=== PATIENT | female | born 1985 | race Caucasian/White ===

== ENCOUNTER → 2020-06-10 14:51 | Outpatient (BNVA) | payer OTHER, SELFPAY | PROVIDERS: Visit Provider Nurse Practitioner Family | DX: Z20.828 Contact with and (suspected) exposure to other viral communicable diseases (principal) | CPT/HCPCS: 87635 ==

== ENCOUNTER 2020-09-29 08:07 | Emergency (ER) | payer OTHER, SELFPAY ==
--- NOTE | 2020-09-29 08:29 | W.ED.URI ---
HPI - URI/Sore Throat General: Chief Complaint: Fever Stated Complaint: Fever/Weakness/Dizzy/SOB Time Seen by Provider: 09/29/20 08:28 History of Present Illness: MD elicited complaint: fever and cough Onset (ago): day(s) (since tuesday, 3 days) Severity: moderate Description of mucous: clear Able to tolerate fluids by mouth: Yes Relieving factors: nothing Associated symptoms: Reports congestion, cough and fever(s) Review of Systems General: Reports: 10 or more systems reviewed and unremarkable except in HPI and below Const: Reports: fever(s) Resp: Reports: non-productive cough PFSH ED PFSH: Medical History (Updated 09/29/20 @ 09:44 by JERSON Núñez) No pertinent past medical history Surgical History (Updated 12/19/19 @ 20:29 by JERSON Silver) No pertinent past surgical history Family History (Updated 12/19/19 @ 15:21 by Belle Ramos LPN, RT) Denies family history of Clotting disorder Bleeding disorder Cancer Social History Smoking and tobacco status: current every day smoker cigarettes Packs smoked per day: 1 Years cigarettes smoked: 15 Second hand smoke exposure: No Alcohol intake: current Alcohol intake frequency: few times a week Alcohol type: beer Lives independently: Yes Household members: spouse Marital status: Current occupational status: employed Current occupation: [employer] History of recent travel: No Current gender identity: Female Physical Exam Const: COMMON NORMALS: no acute distress and patient oriented x3 GENERAL APPEARANCE: cooperative HENMT: COMMON NORMALS: normocephalic and Normal external nose present HEAD & SCALP: normal to inspection and normocephalic NOSE: Normal external nose present MOUTH: Normal oral and palatal mucosa present Eye: GENERAL EYE: appearance normal, both eyes and all related structures Neck/C-Spine: COMMON NORMALS: full ROM Lymph: LYMPHATIC: no lymphadenopathy noted Chest: COMMONS NORMALS: normal inspection of the chest Resp: COMMON NORMALS: normal respiratory effort EFFORT & INSPECTION: Yes able to speak in complete sentences AUSCULTATION: wheezes Cardio: COMMON NORMALS: regular rate and regular rhythm RATE: regular rate RHYTHM: regular rhythm GI: COMMON NORMALS: non-tender Back/Pelvis: COMMON NORMALS: thoracic and lumbar spine normal to inspection Extremity: COMMON NORMALS: normal to inspection Neuro: COMMON NORMALS: patient oriented x3 and moves all extremities Psych: COMMON NORMALS: mental status grossly normal and cooperative Skin: COMMON NORMALS: no rashes or lesions noted GENERAL SKIN EXAM: no rashes or lesions noted Course Vital Signs: Vital signs: Vital Signs Temperature 97.9 F 09/29/20 08:30 Pulse Rate 68 09/29/20 09:34 Respiratory Rate 18 09/29/20 09:28 Blood Pressure 94/67 09/29/20 08:30 Pulse Oximetry 95 09/29/20 09:28 MDM - URI/Sore Throat MDM Narrative: Medical decision making narrative: Patient comes in today with complaints of wheezing and cough with fever and the evening since Tuesday. Patient denies any history of similar episodes. On exam patient has wheezing throughout lung correa. Skin is warm and dry. Vital signs are normal. Differential diagnosis includes but not limited to pneumonia, bronchitis, COVID-19. Chest x-ray was normal. Laboratory values noted some mild elevation in hemoglobin and hematocrit, sodium 135, anion gap of 21. Feel the patient probably has bronchitis maybe with a mild touch of asthma. Patient was treated with albuterol inhaler 4 puffs with improvement of lung correa and wheezing. Patient then was medicated with dexamethasone 10 mg IV and given 1 L of IV fluids. Patient had significant improvement in symptoms prior to discharge. We will continue patient with doxycycline 100 mg twice a day for 7 days and dexamethasone 4 mg daily for 5 days. Patient was encouraged to drink plenty of water continue with albuterol inhaler for wheezing and cough and then daily for times. Patient reported understanding of care plan and need for follow-up or return to the ER. Lab Data: Labs: Lab Results 09/29/20 09/29/20 09/29/20 Range/Units 08:50 08:50 08:56 WBC 9.8 (4.0-10.0) 10^3/ uL RBC 5.02 (4.1-5.3) 10^6/u L Hgb 16.4 H (11.5-15.3) g/dL Hct 47.5 H (37.0-47.0) % MCV 94.6 (81-99) fL MCH 32.7 (28.0-34.0) pg MCHC 34.5 (30.0-36.0) g/dL RDW 13.5 (12.1-15.1) % Plt Count 358 (130-400) 10^3/c mm MPV 8.9 (7.4-10.4) fL Neut % (Auto) 63.8 % Lymph % (Auto) 19.4 % [place] % (Auto) 12.4 % Eos % (Auto) 3.3 % Baso % (Auto) 0.7 % Neut # (Auto) 6.26 (1.8-7.7) 10^3/u L Lymph # (Auto) 1.9 (0.8-4.8) 10^3/u L [place] # (Auto) 1.2 H (0.2-0.9) 10^3/u L Eos # (Auto) 0.3 (0.0-0.8) 10^3/u L Baso # (Auto) 0.1 (0.0-0.1) 10^3/u L Nucleated RBC % (a uto) 0 % Nucleated RBCs # 0.0 /100WBC Sodium 135 L (136-145) mmol/L Potassium 4.1 (3.5-5.1) mmol/L Chloride 97 L (98-107) mmol/L Carbon Dioxide 21 L (22-29) mmol/L Anion Gap 21.1 H (5-19) BUN 10 (6-20) mg/dL Creatinine 0.5 (0.5-0.9) mg/dL GFR Calculation 141.2 H (90-130) mL/min Glucose 78 (65-115) mg/dL Calculated Osmolal ity 278 L (285-295) mOsm/k g Calcium 9.3 (8.5-10.5) mg/dL Total Bilirubin 0.6 (0.15-1.2) mg/dL AST 21 (0-32) U/L ALT 16 (0-33) U/L Alkaline Phosphata se 77 (35-105) IU/L Total Protein 7.3 (6.6-8.7) g/dL Albumin 4.4 (3.5-5.2) g/dL Globulin 2.9 (1.3-4.6) g/dL SARS-CoV-2 Ag (Rap id) Negative (Negative) Discharge Plan Discharge Patient Disposition: Home Clinical Impression: Acute asthmatic bronchitis Condition: Stable Prescriptions: New doxycycline monohydrate 100 mg capsule 100 mg PO BID 7 Days Qty: 14 RF: 0 dexamethasone 4 mg tablet 4 mg PO DAILY Qty: 5 RF: 0 Discharge Orders: Discharge ED (Routine); Ordered 09/29/20 Ordered By: John Payan Discharge Diet: Usual diet Discharge Activity: Increase activity as tolerated Patient Instructions: Acute Bronchitis (ED), Opioid Safety Activity Restrictions/Additional Instructions: Continue with albuterol inhaler 2 puffs every 4 hours as needed for cough or wheezing. You may want to use the inhaler at least 4 times a day for the next 5 days. Try to stop smoking. Take antibiotic as directed twice a day for the next 7 days. Doxycycline, the antibiotic, they make you more sensitive to the sun so be careful in direct sunlight. Take dexamethasone 4 mg daily for the next 5 days to help with inflammation of the bronchioles. Drink plenty of water. Activity as tolerated. Follow-up with primary care as needed. Return to the ER for new concerns. 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
[2020-09-29 08:30] VITALS: BP 94/67; PULSE 76; RESP 18; TEMP 36.6; O2SAT 95; BMI 29.7
--- NOTE | 2020-09-29 08:33 | XRR_ITS ---
PROCEDURE INFORMATION: Exam: XR Chest Exam date and time: 09/29/2020 8:37 AM Age: 35 years old Clinical indication: Cough and shortness of breath and wheezing; Additional info: Cough wheezing TECHNIQUE: Imaging protocol: XR of the chest. Views: 1 view. COMPARISON: No relevant prior studies available. FINDINGS: Lungs: Unremarkable. No consolidation. Pleural spaces: Unremarkable. No pleural effusion. No pneumothorax. Heart/Mediastinum: Unremarkable. No cardiomegaly. Bones/joints: Unremarkable. XR/XR chest 1V portable [id number] IMPRESSION: No acute findings.
[2020-09-29 08:47] VITALS: O2SAT 95
[2020-09-29] MEDS: sodium chloride 0.9% 1,000 ML 999 ML IV (08:57)
[2020-09-29] MEDS: dexamethasone 4 mg/mL INJ 10 MG IVP (08:57)
[2020-09-29 09:11] LABS: Basophils # 0.1 10^3/uL (0.0-0.1); Basophils % 0.7 %; Eosinophils # 0.3 10^3/uL (0.0-0.8); Eosinophils % 3.3 %; Hematocrit 47.5 % (37.0-47.0); Hemoglobin 16.4 g/dL (11.5-15.3); Lymphocytes # 1.9 10^3/uL (0.8-4.8); Lymphocytes % 19.4 %; Mean Corpuscular HGB Conc 34.5 g/dL (30.0-36.0); Mean Corpuscular Hemoglobin 32.7 pg (28.0-34.0); Mean Corpuscular Volume 94.6 fL (81-99); Mean Platelet Volume 8.9 fL (7.4-10.4); Monocytes # 1.2 10^3/uL (0.2-0.9); Monocytes % 12.4 %; Neutrophils # 6.26 10^3/uL (1.8-7.7); Neutrophils % 63.8 %; Nucleated Red Blood Cells % 0 %; Platelet Count 358 10^3/cmm (130-400); Red Blood Count 5.02 10^6/uL (4.1-5.3); Red Cell Distribution Width 13.5 % (12.1-15.1); White Blood Count 9.8 10^3/uL (4.0-10.0)
[2020-09-29] MEDS: albuterol 8 gm MDI 4 PUFF INHALATION (09:27)
[2020-09-29 09:28] VITALS: PULSE 61; RESP 18; O2SAT 95
[2020-09-29 09:32] LABS: Alanine Aminotransferase 16 U/L (0-33); Albumin Level 4.4 g/dL (3.5-5.2); Alkaline Phosphatase 77 IU/L (35-105); Anion Gap 21.1 (5-19); Aspartate Amino Transferase 21 U/L (0-32); Blood Urea Nitrogen 10 mg/dL (6-20); Calcium 9.3 mg/dL (8.5-10.5); Carbon Dioxide 21 mmol/L (22-29); Chloride 97 mmol/L (98-107); Globulin 2.9 g/dL (1.3-4.6); Glomerular Filtration Rate 141.2 mL/min (90-130); Glucose 78 mg/dL (65-115); Osmolality Calculated 278 mOsm/kg (285-295); Potassium 4.1 mmol/L (3.5-5.1); Sodium 135 mmol/L (136-145); Total Bilirubin 0.6 mg/dL (0.15-1.2); Total Protein 7.3 g/dL (6.6-8.7)
[2020-09-29 09:34] VITALS: PULSE 68
[2020-09-29 09:40] LABS: SARS Covid-2 Antigen Negative (Negative)
[2020-09-29 10:23] VITALS: BP 121/64; PULSE 64; RESP 21; O2SAT 95
[2020-09-29] MEDS: ketorolac 30 mg/mL INJ 15 MG IVP (10:23)
[2020-09-29] MEDS: doxycycline 100 mg Tablet PO (10:23)
[2020-09-29 11:03] VITALS: PULSE 73; RESP 19; O2SAT 95
== END 2020-09-29 11:04 | disposition home or self-care (01) ==
PROVIDERS: Emergency Provider Nurse Practitioner Family
DX: J45.909 Unspecified asthma, uncomplicated (principal); F17.210 Nicotine dependence, cigarettes, uncomplicated
CPT/HCPCS: 71045; 80053; 85025; 87426; 94640; 96361; 96374; 96375; 99283; J1100; J1885; J3535; J7030

== ENCOUNTER 2021-09-08 09:39 | Outpatient (CLI) | payer OTHER, SELFPAY ==
--- NOTE | 2021-09-08 10:02 | XR_ITS ---
WS: [id number] Exam: XR lumbar spine 2-3V* [id number] Date/Time of Exam: 09/08/2021 10:02 AM Reason For Exam: M54.41 - Lumbago with sciatica, right side Findings: In the AP projection, the lumbar spine is straight. The sacroiliac joints are open. The facet struc tures are bilaterally symmetrical. In the lateral projection, the lumbar curve is well maintained. The intervertebral disc spaces are intact. No fractures or anomalies of the lumbar spine are noted. XR/XR lumbar spine 2-3V* [id number] IMPRESSION: Negative lumbar spine.
--- NOTE | 2021-09-08 10:02 | XR_ITS ---
WS: [id number] Exam: XR sacroiliac jts m 3V [id number] Date/Time of Exam: 09/08/2021 10:02 AM Reason For Exam: M54.41 - Lumbago with sciatica, right side No fracture or dislocation. The SI joints are open bilaterally. No sign of bone destruction. A T-type IUD seen in the central pelvis. XR/XR sacroiliac jts m 3V [id number] IMPRESSION: 1. Normal right and left SI joints.
--- NOTE | 2021-09-08 10:02 | XR_ITS ---
WS: [id number] Exam: XR thoracic spine 3V* [id number] Date/Time of Exam: 09/08/2021 10:02 AM Reason For Exam: M54.41 - Lumbago with sciatica, right side Findings: In the AP projection, the thoracic spine is straight. In the lateral projection, the thoracic curve is well maintained. The intervertebral disc spaces are intact. No fractures or anomalies of the tho racic spine are noted. XR/XR thoracic spine 3V* [id number] IMPRESSION: Negative thoracic spine.
== END 2021-09-08 09:40 | disposition home or self-care (01) ==
PROVIDERS: Visit Provider Nurse Practitioner Family
DX: M54.41 Lumbago with sciatica, right side (principal); M54.6 Pain in thoracic spine
CPT/HCPCS: 72072; 72100; 72202

== ENCOUNTER 2021-09-14 13:51 | Emergency (ER) | payer OTHER, SELFPAY ==
[2021-09-14 14:06] VITALS: BP 126/82; PULSE 81; RESP 16; TEMP 36.6; O2SAT 99; BMI 27.3
--- NOTE | 2021-09-14 15:25 | USCV_ITS ---
Kell Samuel Age: 36 Gender: F : 1985 Exam Date: 09/14/2021 15:52 Ordering Phys: Prieto Lundberg Technologist: Marcelo Fraga Exam Location: [email or web address]_ Indication: RIGHT CALF PAIN PROCEDURES: Venous duplex imaging was performed in only the right lower extremity. The following venous structures were evaluated: common femoral vein, profunda vein, proximal portion of the greater saphenous vein, superficial femoral vein, and the popliteal vein. In addition, the posterior tibial and peroneal trunk were evaluated. Serial compression, augmentation maneuvers, and spectral Doppler flow evaluation were performed. FINDINGS: There appears to be thrombus in the right lower extremity within a varicosity at the mid calf region. No DVT noted at this time. All other veins examined appear free of thrombus at this time. CONCLUSIONS Thrombus in the RLE mid calf varicosity. No evidence of DVT Prieto WHITEHEAD notified of pre medeiros at time of exam Bridger Aguila MD (Electronically Signed) Final Date: 14 September 2021 16:20 S
--- NOTE | 2021-09-14 17:48 | ED_ITS ---
HPI - Extremity Problem General: Chief complaint: Extremity Injury, Lower Stated complaint: blood clot in rght leg Time Seen by Provider: 09/14/21 17:40 Source: patient Mode of arrival: ambulatory Limitations: no limitations History of Present Illness: Patient is a nice 36-year-old female who presents to ED today with a complaint of pain and swelling to the anterior aspect of her right lower extremity. Patient states she has noticed pain over the past few days. She states she recently had a back injury and was less mobile than normal and is concerned she could have developed a DVT. She has no previous history of blood clots. She has no significant risk factors. Patient is not complaining of shortness of breath, chest pain, difficulty breathing. MD Complaint: extremity pain and extremity swelling Onset (ago): day(s) Pain Consistency: constant Location: left and lower extremity Radiation: none Relieving factors: nothing Exacerbating factors: nothing Associated symptoms: Deny chest pain or fever(s) Review of Systems Const: Denies: fever(s), chills, body aches, fatigue or malaise Card: Denies: chest pain Resp: Denies: dyspnea Musc: Reports: extremity pain and extremity swelling; Denies: neck pain, back pain, joint pain, joint swelling, joint redness, joint warmth or limited range of motion Neuro: Denies: numbness in extremities, weakness in extremities or sensory changes [facility] ED PFSH: Medical History No pertinent past medical history Surgical History No pertinent past surgical history Family History Denies family history of Clotting disorder Bleeding disorder Cancer Social History Smoking and tobacco status: current every day smoker cigarettes Packs smoked per day: 1 Years cigarettes smoked: 15 Second hand smoke exposure: No Alcohol intake: current Alcohol intake frequency: few times a week Alcohol type: beer Lives independently: Yes Household members: spouse Marital status: Current occupational status: employed Current occupation: [employer] History of recent travel: No Current gender identity: Female Female Reproductive History: Date of last menstrual period: 09/07/21 Physical Exam Const: COMMON NORMALS: no acute distress, patient oriented x3, no limitations, alert and well nourished GENERAL APPEARANCE: cooperative Resp: COMMON NORMALS: normal respiratory effort and clear to auscultation bilaterally AUSCULTATION: clear to auscultation bilaterally Cardio: COMMON NORMALS: regular rate and regular rhythm RATE: regular rate RHYTHM: regular rhythm Extremity: GENERAL: Yes normal exam except as noted RIGHT LOWER EXTREMITY: Yes lower leg OTHER: patient has pain and swelling along anterior mid lower leg-palpable cord present; no obvious calf pain/swelling; negative Dm's; normal pulses/cap refill Neuro: COMMON NORMALS: patient oriented x3, moves all extremities, no focal motor deficits and no sensory deficits noted SENSORIUM/ORIENTATION: Yes alert Skin: COMMON NORMALS: no rashes or lesions noted GENERAL SKIN EXAM: no rashes or lesions noted TRAUMA: no lacerations or abrasions Course Vital Signs: Vital signs: Vital Signs Temperature 97.8 F 09/14/21 18:05 Pulse Rate 78 09/14/21 18:05 Respiratory Rate 16 09/14/21 18:05 Blood Pressure 135/74 09/14/21 18:05 Pulse Oximetry 99 09/14/21 18:05 MDM - Extremity (Nontraumatic) Medical Decision Making Patient's ultrasound shows a thrombus in the right lower extremity within a varicosity at the mid calf region. There is no DVT. At this time recommend conservative treatment with anti-inflammatories, ice, heat, elevation/compression, and follow-up with primary care. Return to ED precautions. 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
[2021-09-14 18:05] VITALS: BP 135/74; PULSE 78; RESP 16; TEMP 36.6; O2SAT 99
== END 2021-09-14 18:06 | disposition home or self-care (01) ==
PROVIDERS: Emergency Provider Physician Assistant
DX: I82.4Z1 Acute embolism and thrombosis of unspecified deep veins of right distal lower extremity (principal); F17.210 Nicotine dependence, cigarettes, uncomplicated
CPT/HCPCS: 93971; 99282

== ENCOUNTER → 2022-04-06 13:20 | Outpatient (BNVA) | payer OTHER, SELFPAY | PROVIDERS: Visit Provider Nurse Practitioner Women's Health | DX: N76.0 Acute vaginitis (principal); Z30.9 Encounter for contraceptive management, unspecified; Z30.433 Encounter for removal and reinsertion of intrauterine contraceptive device | CPT/HCPCS: 81025 ==

== ENCOUNTER → 2022-05-04 10:15 | Outpatient (BNVA) | payer SELFPAY | PROVIDERS: Visit Provider Dermatology | DX: Z01.89 Encounter for other specified special examinations (principal) ==

== ENCOUNTER → 2022-07-23 11:18 | Outpatient (BNVA) | payer SELFPAY | PROVIDERS: Visit Provider Nurse Practitioner Women's Health | DX: Z12.4 Encounter for screening for malignant neoplasm of cervix (principal); N39.3 Stress incontinence (female) (male) | CPT/HCPCS: 87624 ==

== ENCOUNTER → 2023-03-11 09:30 | Outpatient (BNVA) | payer OTHER, SELFPAY | PROVIDERS: PCP Family Medicine; Visit Provider Family Medicine | DX: R73.03 Prediabetes (principal); N81.10 Cystocele, unspecified; R10.2 Pelvic and perineal pain; N39.3 Stress incontinence (female) (male); F43.10 Post-traumatic stress disorder, unspecified; M51.26 Other intervertebral disc displacement, lumbar region; I83.91 Asymptomatic varicose veins of right lower extremity; Z71.6 Tobacco abuse counseling; F17.200 Nicotine dependence, unspecified, uncomplicated; F10.10 Alcohol abuse, uncomplicated; M25.562 Pain in left knee | CPT/HCPCS: 80053; 83036 ==

== ENCOUNTER → 2023-09-22 15:28 | Outpatient (BNVA) | payer OTHER, SELFPAY | PROVIDERS: PCP Family Medicine; Visit Provider Obstetrics & Gynecology | DX: N81.2 Incomplete uterovaginal prolapse (principal) | CPT/HCPCS: 80053; 85025 ==

== ENCOUNTER → 2023-09-23 09:00 | Outpatient (BNVA) | payer OTHER, SELFPAY | PROVIDERS: PCP Family Medicine; Visit Provider Obstetrics & Gynecology | DX: N81.2 Incomplete uterovaginal prolapse (principal) | CPT/HCPCS: 81000 ==

== ENCOUNTER 2023-09-27 09:49 | Observation (INO) | payer OTHER, SELFPAY ==
[2023-09-27] VITALS (16 sets, daily range): BP systolic 100–136; BP diastolic 53–89; PULSE 55–78; RESP 15–18; TEMP 36.2–37; O2SAT 97–100; BMI 33.4
[2023-09-27] MEDS: enoxaparin 30 mg/0.3 mL Syringe SUBCUT (06:22)
[2023-09-27] MEDS: scopolamine 1.5 Patch 1 PATCH TRANSDERMA (06:22)
[2023-09-27] MEDS: sodium chloride 0.9% 500 ML IV (06:23)
[2023-09-27] MEDS: ceFOXitin 2,000 MG in sodium chloride 0.9% (plus) 50 ML 100 MG IV (06:23)
[2023-09-27] MEDS: sodium chloride 0.9% 1,000 ML 30 ML IV (06:23)
--- NOTE | 2023-09-27 06:41 | ANES.PREANE2 ---
Pre-Anesthetic Assessment Height/Weight: Height 1.68 m Weight 93.894 kg Temp Pulse Resp BP Pulse Ox O2 Del Method 97.1 F L 70 18 136/89 98 Room Air 09/27/23 06:14 09/27/23 06:14 09/27/23 06:14 09/27/23 06:14 09/27/23 06:14 09/27/23 06:15 Preop Diagnosis: Uterine prolapse, cystocele, stress urinary incontinence, pelvic pain Operation Date: 09/27/23 07:00 Proposed Procedures p Total vaginal hysterectomy 99668, anterior colporrhaphy 78383, midurethral sling 27112(Not Applicable) - Itz Cooper MD s Anterior Repair Anterior Colporrhaphy(Not Applicable) - Itz Cooper MD s Sling Single Incision Midurethral Sling(Not Applicable) - Itz Cooper MD Familial anesthetic complications: none Was Beta Jose taken within 24 hours: N/A Was Clonidine taken within 24 hours: N/A Last intake: Intake Last Liquid Date 09/26/23 Last Liquid Time 21:00 Last Solid Date 09/26/23 Last Solid Time 21:00 Last Intake: 23:00 Social Tobacco 1ppd pack(s) per day 15+ pack years Exam alert, oriented x 3, clear to auscultation bilaterally and regular rate & rhythm Airway Submandibular: within normal limits Cervical ROM: within normal limits Mallampati: Class II Dentition: full Pulmonary None reported CV/HEM None reported None reported Hepatic None reported GI None reported Metabolic None reported Musc/skel Lower Back Pain Neuropsych Anxiety and Depression Anesthetic Plan ASA status: 2 Anesthesia: General Risk of > 500 ml blood loss (7ml/kg in children): Yes, adequate IV access and fluids planned Medications/Allergies Home Medications Medication Instructions Recorded Confirmed Last Taken Type copper 380 square mm intrauterine intrauterine 03/11/23 09/22/23 09/27/23 History device (ParaGard T 380A) Allergies Allergy/AdvReac Type Severity Reaction Status Date / Time No Known Allergies Allergy Verified 09/22/23 12:50 Current Medications Generic Name Dose Route Start Last Admin Trade Name Freq PRN Reason Stop Dose Admin Sodium Chloride 1,000 mls @ 30 mls/hr 09/27/23 06:15 09/27/23 06:23 Sodium Chloride 0.9% IV 09/28/23 06:14 30 mls/hr .Q24H VENKATESH Administration Sodium Chloride 500 mls @ 500 mls/hr 09/27/23 06:04 09/27/23 06:23 Sodium Chloride 0.9% IV 09/27/23 07:03 500 mls/hr ONCE ONE Administration PFSH Anesthesia Medical History Varicose veins of right calf Lumbar herniated disc PTSD (post-traumatic stress disorder) Pre-diabetes POP-Q stage 2 cystocele Pelvic pain ROBINSON (stress urinary incontinence, female) Surgical History No pertinent past surgical history Family History Other TIA (transient ischemic attack) Denies family history of Colon cancer Ovarian cancer Diabetes Dementia Heart disease Hypercholesteremia Hyperlipidemia Chronic kidney disease (CKD) Breast cancer Hypertension Uterine cancer Thyroid disease Stroke Social History Smoking and tobacco/nicotine status: current every day tobacco/nicotine user cigarettes Packs smoked per day: 1 Alcohol intake: current Alcohol intake frequency: 0-2 Drinks per Day Substance/Drug Use: never Lives independently: Yes Marital status: Number of children: 2 service: Yes Current occupational status: employed 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
--- NOTE | 2023-09-27 06:58 | W.PM.OPSUD ---
Surgery/Procedure H&P Update DATE OF PROCEDURE: September 27, 2023 DATE H&P PERFORMED: 09/22/23 H&P UPDATE INFORMATION: I have reviewed H&P completed within last 30 days, I have examined patient prior to procedure and No changes to prior documentation PREOP DIAGNOSIS: Uterine prolapse, cystocele, stress urinary incontinence, pelvic pain PLANNED PROCEDURE: Operation Date: 09/27/23 07:00 Proposed Procedures p Total vaginal hysterectomy 21663, anterior colporrhaphy 02708, midurethral sling 41750(Not Applicable) - Itz Cooper MD s Anterior Repair Anterior Colporrhaphy(Not Applicable) - Itz Cooper MD s Sling Single Incision Midurethral Sling(Not Applicable) - Itz Cooper MD
[2023-09-27 07:02] LABS: OR HCG Qualitative Urine Negative (Negative)
[2023-09-27] MEDS: lidocaine-epi 2% PF 1:200,000 20 mL SDV XX (08:03)
--- NOTE | 2023-09-27 09:33 | W.PM.BPON ---
Date of procedure: September 25, 2023 Procedure(s) performed: Total vaginal hysterectomy, anterior colporrhaphy, mid urethral sling Description of findings: Uterine prolapse, cystocele Estimated blood loss: 700 mL Specimen(s) removed: Uterus with left and right fallopian tube Post-operative diagnosis: Status post total vaginal hysterectomy and anterior colporrhaphy
--- NOTE | 2023-09-27 09:36 | P.OP_ITS ---
Operative Report Date of procedure: September 27, 2023 Pre-op diagnosis: Uterine prolapse Cystocele stage II Pelvic pain Stress urinary incontinence Post-op diagnosis: same Procedure done: Total vaginal hysterectomy Anterior colporrhaphy Mid urethral sling Specimens removed/disposition: Uterus with left and right fallopian tubes Surgeon: Itz Cooper MD Estimated blood loss (mL): 700 IV fluids (mL): 1,300 Urine output (mL): 400 Complications: Bleeding Findings: Uterine prolapse and cystocele Procedure: After informed consent and risks, benefits, indications and alternatives reviewed with the patient was taken to the operating room. The patient was placed in dorsal lithotomy position prepped, and draped in the usual sterile fashion. The pre-procedure timeout verifying the correct patient, procedure, site and side, could not requirements was performed and acknowledge by the OR team. A Rajan catheter was placed. A Bookwalter vaginal retractor was placed into the vagina in usual manner visualize the cervix. Cervix was grasped with a single tooth tenaculum and circumferentially infiltrated with 2% lidocaine with epinephrine. Then cervix was circumferentially incised with bovie and the bladder was dissected off the pubovesical cervical fascia anteriorly with a sponge stick and Metzenbaum scissors. The anterior peritoneal reflection was identified and the anterior cul-de-sac was entered sharply with Metzenbaum scissors. The same procedure was performed posteriorly and a posterior colpotomy was made through the posterior cul-de-sac space without difficulty and the posterior blade of the Bookwalter vaginal retractor was advanced posteriorly into the cul-de-sac. At this time, the left and right uterosacral ligaments were isolated and ligated with 0 Vicryl. The LigaSure device was placed over the uterosacral ligaments on either side and was then used in a serial fashion up through the cardinal ligaments bilaterally cross-clamped, cut, and sealed with the LigaSure device. Finally, the uterine arteries were cross-clamped, cut, sealed and ligated with the LigaSure device. Hemostasis was assured. The broad ligaments were then serially clamped, sealed and cut with the LigaSure device on both sides. Excellent hemostasis was visualized. Both cornua were clamped, sealed and cut with the LigaSure device. Then the pedicles were then suture ligated with excellent hemostasis. The uterus was excised and submitted for pathologic evaluation. No other abnormalities were noted in the pelvic cavity. The peritoneum was then closed in a pursestring fashion with 0 Vicryl suture. The vaginal cuff angles were closed with [id number] #0 Vicryl suture on both sides and transfixed with the ipsilateral cardinal and uterosacral ligaments. The remainder of the vaginal cuff was closed with #0 Vicryl in a running locked fashion. Then proceeded to perform the mid urethral sling and anterior colporrhaphy. The anterior vaginal mucosa beneath the midurethra was infiltrated with 2% lidocaine with epinephrine. A vertical midline incision was made beneath the midurethra, nearly 1.5 cm length. Careful submucosal dissection was performed bilaterally up to the interior portion of the inferior pubic ramus. The insertion of adductor longus tendon on the patient?s pubic ramus was identified as reference land ike. Palpated the notch along the internal edge of ischiopubic ramus where the adductor longus tendon and the inferior pubic ramus meet. The Altis single incision sling (SIS) was selected. Then the needle of the SIS inserted aiming at the location of this notch. One of the integrated self- fixating tips place onto the needle by sliding it over the end of the needle. The needle/sling assembly was inserted toward the location of identified reference notch making sure that the flat of the handle is perpendicular to the desired path. The needle was tracked along the posterior surface of the ischiopubic ramus until the midline ike on the mesh is approximately at the midline position under the urethra. The needle was removed and the same was repeated on the contralateral side until the appropriate sling tension under the urethra was achieved ensuring that the mesh lays flat. The needle was removed and vaginal incision was closed in a running interlocking fashion with 2-0 Vicryl. An anterior repair was then performed. The medial portion of the anterior vaginal wall was grasped with two Allis clamps and the mucosa was infiltrated with the previous vasopressin solution. The Metzenbaum scissors were used to dissect and undermine a plane medially up to the point of reflexion anteriorly of the bladder. The vaginal mucosa was incised medially. This tissue was then grasped with wide allis clamps and dissected away with a combination of sharp and blunt dissection on both sides. Significant bleeding noted bleeders were coagulated with Bovie. A suture of 2-0 vicryl was then used to connect the lateral pubovesical connective tissue on either side together in a series of bites that was repeated in two layers. Pressure was applied to control b leeding. The excess vaginal mucosa was trimmed and the incision repaired with a locked suture of 0 vicryl. The patient was given Bludigo IV. At this time, instruments were removed from the vagina at hemostasis assured. Then the Rajan catheter was removed and cystoscope was inserted. The bladder was filled with sterile water. Complete evaluation of the bladder mucosa was performed noting no lacerations, dimpling, tears, bleeding of the mucosa or muscular layers. Both ureteral orifices were identified. Prompt excretion of urine from both ureteral orifices was noted. Cystoscope was withdrawn. Rajan catheter was then placed yielding clear blue urine. A vaginal packing with Premarin cream was placed and the patient was taken out of dorsal lithotomy position and awakened from the general anesthesia. The patient tolerated the procedure well and was taken to the PACU recovery room in a stable condition. Sponge, lap, needle and instruments counts were correct x3.
--- NOTE | 2023-09-27 10:10 | ANE.PACU2 ---
Inpatient post-anesthesia follow up: Airway intact: Yes Vital signs: Temperature 97.8 F Pulse Rate 70 Respiratory Rate 17 Blood Pressure 117/68 Pulse Oximetry 98 Oxygen Delivery Me thod Room Air Oxygen Flow Rate 6 Fraction of Inspir ed Oxygen Hydration adequate: Yes Nausea and vomiting: No Pain level: 1 Mental status: Baseline
[2023-09-27] MEDS: dextrose 5%-lactated ringers 1,000 ML 125 ML IV ×2 (10:38→18:10)
[2023-09-27] MEDS: ketorolac 30 mg/mL INJ IVP ×3 (10:38→22:40)
--- NOTE | 2023-09-27 10:55 | PC.NURSE ---
wound inside vagina, no bleeding on evon pad and no visible blood on vaginal packing tail.
--- NOTE | 2023-09-27 10:58 | PC.NURSE ---
vaginal wound, no bleeding on evon pad, no bleeding on vaginal packing tail.
[2023-09-27] MEDS: acetaminophen 325 mg Tablet 650 MG PO (14:54)
[2023-09-27] MEDS: cyclobenzaprine 10 mg Tablet PO (17:21)
[2023-09-27] MEDS: docusate sodium 100 mg Capsule PO (17:21)
[2023-09-28] MEDS: ketorolac 30 mg/mL INJ IVP (05:02)
[2023-09-28 05:04] VITALS: BP 107/67; PULSE 66; RESP 14; TEMP 36.7; O2SAT 98
--- NOTE | 2023-09-28 05:29 | PC.NURSE ---
This nurse removed vaginal packing when Rajan was removed. At time of Rajan removal when deflating the catheter bulb 3 mls was removed from bulb and no more was in the bulb. Rajan was removed without pain and bulb was empty and catheter tip was intact.
[2023-09-28 05:51] LABS: Hematocrit 28.3 % (36-47); Mean Corpuscular HGB Conc 34.3 g/dL (30-55); Mean Corpuscular Hemoglobin 34.2 pg (27-33); Mean Corpuscular Volume 99.6 fl (85-98); Mean Platelet Volume 9.3 fL (7.4-10.4); Platelet Count 275 10^3/cmm (157-399); Red Blood Count 2.84 10^6/uL (3.85-5.65); Red Cell Distribution Width 13.6 % (12.1-15.1); White Blood Count 13.68 10^3/uL (3.29-11.43)
--- NOTE | 2023-09-28 08:19 | PM.OBGYDC ---
Discharge Providers RAIL MAINTENANCE WORKER Date of Admission: 09/27/23 09:49 Date of Discharge: 09/28/23 Attending Provider at Admission: Itz Cooper MD Attending Provider at Discharge: Itz Cooper MD Primary RAIL MAINTENANCE WORKER: Itz Cooper MD Primary Care Provider: Fer Ruby MD Reason for Visit Reason for Visit: N39.3, N81.2 Hospital Course Hospital Course Ms. Samuel 38-year-old female G3, P2 with a history of chronic pelvic pain, uterine prolapse cystocele stage II and stress urinary incontinence. Admitted for planned total vaginal hysterectomy with anterior colporrhaphy and mid urethral sling. The procedures were performed, complicated by bleeding during bladder repair. Postop overnight observation uneventful. She is afebrile hemodynamically stable postoperative day 1. Tolerating diet well. Ambulating without difficulty. PVR within normal limits. She was counseled regarding pelvic rest for 6 weeks (no sex, no tampons, no vaginal douches). Return to the emergency room if any fever, increased bleeding or pain. Physical Exam Narrative: GA: Alert and oriented ?3. HEENT: WNL. Heart: Regular rate and rhythm. Lungs: Clear to auscultation bilaterally. Abdomen: Bowel sounds present, nontender. PRODUCT INFO SPECIALIST: Spotting bleeding. Extremities: No edema, no cyanosis, no calves pain. Urinary Catheter Management: Rajan: Cath Placed During This Visit: yes, but has since been removed by the nurse Reason for Continuing Indwelling Catheter: Decision to DC Catheter Urinary Catheter Date of Insertion: 09/27/23 Urinary Catheter Time of Insertion: 07:34 Date Urinary Catheter Removed: 09/28/23 Time Urinary Catheter Discontinued: 05:13 History History History 3 Term 2 0 Miscarriages/Ectopic 1 Living Children 2 Discharge Data Studies Completed and Pending Pending at discharge Category Date Time Status Pathology: Surgical [PTH] Routine Pth 09/27/23 08:54 Received Laboratory Results WBC 13.68 10^3/uL (3.29-11.43) H 09/28/23 05:45 RBC 2.84 10^6/uL (3.85-5.65) L 09/28/23 05:45 Hgb 9.70 g/dL (11.27-16.99) L 09/28/23 05:45 Hct 28.3 % (36-47) L 09/28/23 05:45 MCV 99.6 fl (85-98) H 09/28/23 05:45 MCH 34.2 pg (27-33) H 09/28/23 05:45 MCHC 34.3 g/dL (30-55) 09/28/23 05:45 RDW 13.6 % (12.1-15.1) 09/28/23 05:45 Plt Count 275 10^3/cmm (157-399) 09/28/23 05:45 MPV 9.3 fL (7.4-10.4) 09/28/23 05:45 Urine HCG, Qual Negative (Negative) 09/27/23 06:04 Blood Type O Positive 09/27/23 06:30 Rho(D) Type Rh positive 09/27/23 06:30 Antibody Screen Negative 09/27/23 06:30 Vitals Last Vital Signs Temp 98.1 F 09/28/23 05:04 Pulse 66 09/28/23 05:04 Resp 14 09/28/23 05:04 BP 107/67 09/28/23 05:04 Pulse Ox 98 09/28/23 05:04 O2 Del Method Room Air 09/28/23 05:04 O2 Flow Rate 6 09/27/23 09:40 Results Labs OB ([facility]): Blood Type O Positive 09/27/23 Antibody Screen Negative 09/27/23 Hct 28.3 % (36-47) L 09/28/23 Hgb 9.70 g/dL (11.27-16.99) L 09/28/23 Rho(D) Type Rh positive 09/27/23 Plt Count 275 10^3/cmm (157-399) 09/28/23 Hep Bs Antibody 131.3 (11.5-1000) 10/02/21 Rubella IgG Antibody 231.1 IU/mL (0.0-10.0) H 10/02/21 TSH 0.87 uIU/mL (0.27-4.20) 05/04/22 Hemoglobin A1c 5.1 % (4.0-6.0) 03/11/23 VZV IgG Antibody 833.90 index 10/02/21 HCG, Qual Negative (Negative) 04/06/22 Pap Smear Interpret See note 07/23/22 Discharge Plan Discharge Patient Disposition: Home Condition: Stable Prescriptions: New hydrocodone-acetaminophen 5-325 mg tablet 1 tab PO Q4H PRN (Reason: pain) Qty: 20 0RF acetaminophen 325 mg capsule 325 mg PO Q4H PRN (Reason: fever or postoperative pain) Qty: 60 0RF docusate sodium [Colace] 100 mg capsule 100 mg PO BID Qty: 60 0RF ferrous sulfate [Iron (ferrous sulfate)] 325 mg (65 mg iron) tablet 325 mg PO BID Qty: 60 0RF ibuprofen 800 mg tablet 800 mg PO TID PRN (Reason: pain) Qty: 60 0RF Discontinued ParaGard T 380A 380 square mm intrauterine device intrauterine Discharge Orders: Discharge Order (Routine); Ordered 09/28/23 Ordered By: Itz Cooper Referrals: Itz Cooper MD [Physician] - (* Your 2 week post op appointment is on 10/12/2023 at 3:15pm * Your 6 week follow up appointment is on 11/07/23 at 3:45pm) Discharge Diet: Usual diet Discharge Activity: Limit activity as instructed Patient Instructions: Bladder Sling for Women (DC), Vaginal Hysterectomy (DC), Anterior Vaginal Repair (DC), OB Discharge Report, OB Food/Drug Interaction Guide, Opioid Safety Activity Restrictions/Additional Instructions: 1. Please call [facility] on next working day to make your post-operative appointment in 2 weeks. 2. Please stay home until you come back to the clinic on first post-hospatilization check up. 3. Please follow instructions on your medications CAREFULLY. 4. If you have abdominal incision, do not cover it unless dressing is necessary because of drainage. OK to shower, but avoid bath. Leave steri-strips until they fall off. If they are still on one week after surgery, you may remove them. 5. If you had vaginal surgery or vaginal repair, Dr. Cooper may instruct you to take SITZ bath. 6. Yellow, blood tinged odorous vaginal discharge is usually normal after hysterectomy or vaginal surgeries. 7. No SEXUAL INTERCOURSE, tampons, or douches until you are completely released from the post-operative care. 8. Avoid constipation by eating right and maybe using some Metamucil or Milk of Magnesia. 9. All prescription refills are given during the working hours. Please do no wait till it runs out. Call the clinic at [phone] before your medication runs out. The clinic will get in touch with your doctor to prescribe medications if necessary. 10. Please remain within 40 mile radius from our hospital because emergencies do happen now and then during the post-operative period. 11. If you have stairs at home, take one step at a time slowly and minimize the number of trips. It helps to stay in one floor for the next few days. No lifting except what you can lift by one hand until you are released from the post-operative care. 12. Driving is discouraged until you are well healed. It may be 3-4 weeks before you feel strong enough to drive. You should be able to turn and look through the rear window without pain and you should be able to push the brake pedal very hard without pain before you drive. No fast rules, but SAFETY should be your primary concern. DO NOT drive if you are on sedating medications such as narcotics. 13. Call the clinic (during working hours) to make urgent appointment or go to the Emergency room, if any of the following occurs: i. Vaginal bleeding becomes heavy, more than a period. ii. Incision becomes red and sore, or drains pus. iii. Your TEMPERATURE is over 100.4F or you have chill. iv. IV site becomes red and swollen (a little ``knot?? is usually OK) v. Persistent nausea and vomiting vi. Persistent constipation or diarrhea vii. Rash or allergic reaction to medications. Discharge Attestations RAIL MAINTENANCE WORKER Time Spent in Discharge Care*: greater than 30 min Coding Level of Care Code Acute Code for Chg Fwd
[2023-09-28] MEDS: docusate sodium 100 mg Capsule PO (09:14)
[2023-09-28] MEDS: ibuprofen 800 mg tablet PO (09:14)
[2023-09-28 09:18] VITALS: BP 121/75; PULSE 61; RESP 16; TEMP 36.8
== END 2023-09-28 09:20 | disposition home or self-care (01) ==
LOC: OBGYN 09:49
PROVIDERS: Admitting Provider Obstetrics & Gynecology; PCP Family Medicine; Visit Provider Obstetrics & Gynecology
PROC: 0JQC0ZZ Repair Pelvic Region Subcutaneous Tissue and Fascia, Open Approach (ICD-10-PCS; CPT 57240; 2023-09-27 07:00)
PROC: (CPT 57288; 2023-09-27 07:00)
DX: N81.4 Uterovaginal prolapse, unspecified (principal); N39.3 Stress incontinence (female) (male); N72 Inflammatory disease of cervix uteri; N80.9 Endometriosis, unspecified
CPT/HCPCS: 57240; 57288; 58262; 36415; 51798; 81025; 85027; 86850; 86900; 88302; 88307; C1713; G0378; J0694; J1100; J1170; J1200; J1650; J1885; J2405; J2704; J3010; J3490; J7030; J7040; J7121

== ENCOUNTER 2024-03-27 09:29 | Outpatient (CLI) | payer OTHER, SELFPAY ==
--- NOTE | 2024-03-27 10:00 | MM_ITS ---
WS: [id number] DIAGNOSTIC BILATERAL DIGITAL BREAST TOMOSYNTHESIS MAMMOGRAPHY WITH CAD RIGHT breast ultrasound, limited HISTORY: N63.41 - Unspecified lump in right breast, subareolar COMPARISON: None available. TECHNIQUE: Bilateral craniocaudad, mediolateral oblique, and mediolateral views are submitted with to mosynthesis and SM. Spot compression RIGHT CC and MLO. Computer aided detection utilized. Breast composition: There are scattered areas of fibroglandular density. Area of soft tissue asymmetry noted only on the CC projection measures 1.1 x 2.0 cm. This is directly behind the nipple. There is no associated mass or similar soft tissue on the lateral projection. The remaining breasts are negative. No cluster of calcification or distortion. RIGHT breast ultrasound, limited. In the region of the palpable abnormality there is a hypoechoic ill-defined mass with increased vascu larity measuring 1.3 x 1.1 x 1.0 cm. This extends towards the nipple. There is no corresponding abnor mality on the LEFT breast. MM/MM diag BI tomosynthesis [id number] IMPRESSION: BI-RADS: 4 - Suspicious Finding - Biopsy Should Be Considered. FOLLOW UP: Biopsy Recommended Ultrasound-guided biopsy recommended of the hypoechoic, irregular mass with inc reased vascularity in the retroareolar position towards 9:00. This corresponds to the palpable abnormality. Differential includes residual mastitis/abscess, p apilloma or neoplasm. Recommend ultrasound-guided breast biopsy. Findings and follow-up discussed with the patient at the time of the ultrasound .
--- NOTE | 2024-03-27 10:30 | US_ITS ---
WS: [id number] DIAGNOSTIC BILATERAL DIGITAL BREAST TOMOSYNTHESIS MAMMOGRAPHY WITH CAD RIGHT breast ultrasound, limited HISTORY: N63.41 - Unspecified lump in right breast, subareolar COMPARISON: None available. TECHNIQUE: Bilateral craniocaudad, mediolateral oblique, and mediolateral views are submitted with to mosynthesis and SM. Spot compression RIGHT CC and MLO. Computer aided detection utilized. Breast composition: There are scattered areas of fibroglandular density. Area of soft tissue asymmetry noted only on the CC projection measures 1.1 x 2.0 cm. This is directly behind the nipple. There is no associated mass or similar soft tissue on the lateral projection. The remaining breasts are negative. No cluster of calcification or distortion. RIGHT breast ultrasound, limited. In the region of the palpable abnormality there is a hypoechoic ill-defined mass with increased vascu larity measuring 1.3 x 1.1 x 1.0 cm. This extends towards the nipple. There is no corresponding abnor mality on the LEFT breast. US/US breast RT limited* [id number] IMPRESSION: BI-RADS: 4 - Suspicious Finding - Biopsy Should Be Considered. FOLLOW UP: Biopsy Recommended Ultrasound-guided biopsy recommended of the hypoechoic, irregular mass with inc reased vascularity in the retroareolar position towards 9:00. This corresponds to the palpable abnormality. Differential includes residual mastitis/abscess, p apilloma or neoplasm. Recommend ultrasound-guided breast biopsy. Findings and follow-up discussed with the patient at the time of the ultrasound .
== END 2024-03-27 09:30 | disposition home or self-care (01) ==
LOC: RAD 09:29
PROVIDERS: PCP Family Medicine; Visit Provider Nurse Practitioner Women's Health
DX: N63.41 Unspecified lump in right breast, subareolar (principal); N64.53 Retraction of nipple; R92.323 Mammographic fibroglandular density, bilateral breasts
CPT/HCPCS: 76642; 77062; G0279

== ENCOUNTER 2024-04-13 10:43 | Outpatient (CLI) | payer OTHER, SELFPAY ==
--- NOTE | 2024-04-13 11:30 | US_ITS ---
WS: [id number] ULTRASOUND-GUIDED RIGHT BREAST BIOPSY HISTORY: N63.41 - Unspecified lump in right breast, subareolar COMPARISON: 03/27/2024 Procedure, risks and complications are explained to the patient. Medications are reviewed. Consent is obtained. The mass in the RIGHT breast is localized with ultrasound. Mass localizes to 9:00 at the retroareolar location. Skin is cleansed with ChloraPrep and anesthetized with 1% buffered lidocaine. Small dermat ome is made. Under sterile conditions mass is biopsied with a 18-gauge Achieve needle. Multiple core biopsies are performed. Material placed in formalin and sent to pathology for review. No complication s encountered. Breast tissue marker (Bard ultrasound enhanced ribbon): Single. Patient left the radiology suite with no complications. Patient is instructed to return to [facility] or [facility] with any concerns. US/[place] [id number] IMPRESSION: 1. Uncomplicated core needle biopsy RIGHT retroareolar mass biopsy. PATHOLOGY: Core breast fragments with features of acute and focally necrotizing inflammation. No atypia or malignancy. Findings are likely due to bacterial ma stitis. RECOMMENDATION: RIGHT breast ultrasound follow-up in 6 months.
== END 2024-04-13 10:44 | disposition home or self-care (01) ==
LOC: RAD 10:44
PROVIDERS: PCP Family Medicine; Visit Provider Nurse Practitioner Women's Health
DX: N63.41 Unspecified lump in right breast, subareolar (principal)
CPT/HCPCS: 19083; 88305

== ENCOUNTER → 2024-07-02 09:23 | Outpatient (BNVA) | payer SELFPAY | PROVIDERS: PCP Family Medicine; Referring Provider Obstetrics & Gynecology; Visit Provider Nurse Practitioner Women's Health | DX: N61.1 Abscess of the breast and nipple (principal) | CPT/HCPCS: 87070; 87077; 87184 ==

== ENCOUNTER → 2024-07-25 14:54 | Outpatient (BNVA) | payer OTHER, SELFPAY | PROVIDERS: PCP Family Medicine; Visit Provider Nurse Practitioner Women's Health | DX: N61.1 Abscess of the breast and nipple (principal) | CPT/HCPCS: 85025; 87070; 87077; 87184 ==

== ENCOUNTER → 2024-09-21 14:06 | Outpatient (BNVA) | payer OTHER, SELFPAY | PROVIDERS: PCP Family Medicine; Visit Provider Nurse Practitioner Women's Health | DX: N61.1 Abscess of the breast and nipple (principal) | CPT/HCPCS: 87070 ==

== ENCOUNTER → 2024-11-08 16:31 | Outpatient (BNVA) | payer OTHER, SELFPAY | PROVIDERS: PCP Family Medicine; Visit Provider Nurse Practitioner Women's Health | DX: E55.9 Vitamin D deficiency, unspecified (principal); Z13.1 Encounter for screening for diabetes mellitus; Z13.228 Encounter for screening for other metabolic disorders; Z13.0 Encounter for screening for diseases of the blood and blood-forming organs and certain disorders involving the immune mechanism | CPT/HCPCS: 80053; 82306; 83036; 85025 ==

== ENCOUNTER → 2024-12-03 15:34 | Outpatient (BNVA) | payer OTHER, SELFPAY | PROVIDERS: PCP Family Medicine; Visit Provider Thoracic Surgery (Cardiothoracic Vascular Surgery) | DX: T81.31XA Disruption of external operation (surgical) wound, not elsewhere classified, initial encounter (principal) | CPT/HCPCS: 87070; 87077; 87186 ==